=== PATIENT | female | born 1945 | race Caucasian/White ===

== ENCOUNTER 2017-01-14 10:09 | Outpatient (CLI) | payer BC ==
[~2017-01-14 10:09] MED LIST: ALPR0.255 PO; ASPI-605 PO; CALC-223 PO; LACT10SO PO; LOSA25TA3 PO; MAGN400T26 PO; METO25TA3 PO; ONDA4TAB11 PO; OXYC-164 PO; SENN-18 PO; SIMV10TA6 PO
== END 2017-01-14 23:59 | disposition home or self-care (01) ==
LOC: MRI 10:09
PROVIDERS: ATTEND Internal Medicine
DX: M24.10 Other articular cartilage disorders, unspecified site (principal)
CPT/HCPCS: 73718-TC

== ENCOUNTER 2017-02-11 11:02 | Outpatient (CLI) | payer BC ==
[2017-02-11 11:32] LABS: BASOPHILS % (AUTO) 0.7 % (0.0-2.0); EOSINOPHILS % (AUTO) 0.9 % (0.0-6.0); HEMATOCRIT 40 % (33-45); HEMOGLOBIN 13.3 g/dL (11.5-14.8); LYMPHOCYTES # (AUTO) 1.4 /CMM (0.8-4.8); LYMPHOCYTES % (AUTO) 28.6 % (20.0-44.0); MEAN CORPUSCULAR HEMOGLOBIN 30 PG (26.0-33.0); MEAN CORPUSCULAR HGB CONC 33 g/dl (31.0-36.0); MEAN CORPUSCULAR VOLUME 91 fL (82-100); MONOCYTES # (AUTO) 0.4 /CMM (0.1-1.30); NEUTROPHILS % (AUTO) 60.8 % (43.0-81.0); PLATELET COUNT (AUTO) 208 /CMM (150-450); RDW COEFFICIENT OF VARIATION 13.7 (11.5-15.0); RED BLOOD CELL COUNT(AUTO) 4.38 MIL/uL (4.0-5.2); WHITE BLOOD COUNT (AUTO) 4.9 K/uL (4.3-11.0)
[2017-02-11 11:51] LABS: ALBUMIN 3.9 g/dL (3.4-5.0); BILIRUBIN,TOTAL 1.2 mg/dL (0.2-1.0); CALCIUM, SERUM 8.6 mg/dL (8.5-10.1); CREATININE 0.7 mg/dL (0.6-1.3); POTASSIUM 3.7 mmol/L (3.5-5.1)
[2017-02-11 11:56] LABS: THYROID STIMULATING HORMONE 1.079 uIU/mL (0.358-3.74)
== END 2017-02-11 23:59 | disposition home or self-care (01) ==
LOC: LAB 11:02
PROVIDERS: ATTEND Internal Medicine Cardiovascular Disease
DX: I10 Essential (primary) hypertension (principal); E78.5 Hyperlipidemia, unspecified; R53.83 Other fatigue
CPT/HCPCS: 36415; 80053-TC; 80061-TC; 84443-TC; 85025-TC

== ENCOUNTER 2017-09-02 10:25 | Outpatient (CLI) | payer BC | END 2017-09-02 23:59 | disposition home or self-care (01) | LOC: LAB 10:25 | PROVIDERS: ATTEND Internal Medicine | DX: E55.9 Vitamin D deficiency, unspecified (principal); W27.3XXA Contact with needle (sewing), initial encounter; X58.XXXA Exposure to other specified factors, initial encounter; Y93.9 Activity, unspecified; Y92.9 Unspecified place or not applicable; Y99.9 Unspecified external cause status | CPT/HCPCS: 36415; 82306 ==

== ENCOUNTER 2018-03-31 09:10 | Outpatient (CLI) | payer BC ==
[~2018-03-31 09:10] MED LIST changes: -OXYC-164 PO; +OXYC-454 PO
[2018-03-31 09:41] LABS: BASOPHILS % (AUTO) 0.7 % (0.0-2.0); EOSINOPHILS % (AUTO) 2.1 % (0.0-6.0); HEMATOCRIT 41 % (33-45); HEMOGLOBIN 13.5 g/dL (11.5-14.8); LYMPHOCYTES # (AUTO) 1.6 /CMM (0.8-4.8); LYMPHOCYTES % (AUTO) 30.2 % (20.0-44.0); MEAN CORPUSCULAR HEMOGLOBIN 31 PG (26.0-33.0); MEAN CORPUSCULAR HGB CONC 33 g/dl (31.0-36.0); MEAN CORPUSCULAR VOLUME 92 fL (82-100); MONOCYTES # (AUTO) 0.5 /CMM (0.1-1.30); MONOCYTES % (AUTO) 9.5 % (2.0-12.0); NEUTROPHILS # (AUTO) 3.1 /CMM (1.8-8.9); NEUTROPHILS % (AUTO) 57.5 % (43.0-81.0); PLATELET COUNT (AUTO) 219 /CMM (150-450); RDW COEFFICIENT OF VARIATION 13.4 (11.5-15.0); RED BLOOD CELL COUNT(AUTO) 4.39 MIL/uL (4.0-5.2); WHITE BLOOD COUNT (AUTO) 5.3 K/uL (4.3-11.0)
[2018-03-31 10:00] LABS: CALCIUM, SERUM 8.6 mg/dL (8.5-10.1); CREATININE 0.8 mg/dL (0.6-1.3); POTASSIUM 4.4 mmol/L (3.5-5.1); TOTAL PROTEIN, SERUM 7.4 g/dL (6.4-8.2)
[2018-03-31 10:06] LABS: THYROID STIMULATING HORMONE 1.394 uIU/mL (0.358-3.74)
== END 2018-03-31 23:59 | disposition home or self-care (01) ==
LOC: LAB 09:10
PROVIDERS: ATTEND Internal Medicine Cardiovascular Disease
DX: I10 Essential (primary) hypertension (principal); E78.5 Hyperlipidemia, unspecified; R53.83 Other fatigue
CPT/HCPCS: 36415; 80053-TC; 80061-TC; 84443-TC; 85025-TC

== ENCOUNTER 2018-04-09 10:43 | Emergency (ER) | payer BC ==
[~2018-04-09] VITALS: Ht 165.1 cm; Wt 55.8 kg
--- NOTE | 2018-04-09 10:45 | NUR ---
AAOX3, CAME TO ER C/O ACUTE ONSET ALTERED MENTAL STATUS THIS AM, LKW 10AM. AT 1015, PATIENT STATES THAT SHE CAN'T RECOGNIZED ANY OF HER PATIENT. FACE SYMMETRICAL, BILATERAL STRONG AND EQUAL AEROBICS INSTRUCTOR. PLACED ON THE MONITOR. RR IS EVEN AND UNLABORED WITH NAD NOTED. DR MOSS AT BS FOR EVAL.
[2018-04-09 10:59] LABS: BASOPHILS % (AUTO) 0.7 % (0.0-2.0); EOSINOPHILS % (AUTO) 0.5 % (0.0-6.0); HEMATOCRIT 41 % (33-45); HEMOGLOBIN 13.6 g/dL (11.5-14.8); LYMPHOCYTES # (AUTO) 1.2 /CMM (0.8-4.8); LYMPHOCYTES % (AUTO) 18.6 % (20.0-44.0); MEAN CORPUSCULAR HEMOGLOBIN 30 PG (26.0-33.0); MEAN CORPUSCULAR HGB CONC 33 g/dl (31.0-36.0); MEAN CORPUSCULAR VOLUME 90 fL (82-100); MONOCYTES # (AUTO) 0.4 /CMM (0.1-1.30); MONOCYTES % (AUTO) 6.9 % (2.0-12.0); NEUTROPHILS # (AUTO) 4.7 /CMM (1.8-8.9); NEUTROPHILS % (AUTO) 73.3 % (43.0-81.0); PLATELET COUNT (AUTO) 245 /CMM (150-450); RDW COEFFICIENT OF VARIATION 12.4 (11.5-15.0); RED BLOOD CELL COUNT(AUTO) 4.55 MIL/uL (4.0-5.2); WHITE BLOOD COUNT (AUTO) 6.3 K/uL (4.3-11.0)
[2018-04-09] MEDS ORDERED: LABETALOL 20 MG/4 ML VIAL IV ONE (11:00)
[2018-04-09 11:08] LABS: CALCIUM, SERUM 8.6 mg/dL (8.5-10.1); CARBON DIOXIDE 28 mmol/L (21-32); CHLORIDE 103 mmol/L (98-107); CREATININE 0.7 mg/dL (0.6-1.3); GLUCOSE 131 mg/dL (74-106); POTASSIUM 3.7 mmol/L (3.5-5.1); SODIUM SERUM 137 mmol/L (136-145); UREA NITROGEN, BLOOD 17 mg/dL (7-18)
--- NOTE | 2018-04-09 11:11 | NUR ---
XRAY IN PROGRESS AT BS
[2018-04-09 11:12] LABS: INR 0.88 (0.85-1.15)
[2018-04-09 11:18] LABS: TROPONIN I < 0.017 ng/mL (0.00-0.056)
[2018-04-09 11:23] LABS: CHOLESTEROL 218 mg/dL (<200); HDL CHOLESTEROL 106 mg/dL (40-60); LDL 107 mg/dL (0-99); TRIGLYCERIDES 43 mg/dL (30-150)
[2018-04-09] MEDS ORDERED: IOHEXOL-350 100 ML VIAL IV ONE (11:39)
[2018-04-09] MEDS ORDERED: IV NS 0.9% 250 ML IV ONE (11:39)
[2018-04-09] MEDS ORDERED: CT SWABBABLE VALVE TRANS SET 1 EA INFUS.SET MC ONE (11:39)
--- NOTE | 2018-04-09 13:11 | NUR ---
CALLED AND PAGED DR. LUZ
[2018-04-09 13:44] VITALS: BP 134/70
--- NOTE | 2018-04-09 13:47 | NUR ---
Patient discharged to home in stable condition. Written and verbal after care instructions given. Patient verbalizes understanding of instruction. IV removed. Catheter intact and site benign. Pressure and 4x4 applied to site. No bleeding noted.
== END 2018-04-09 13:49 | disposition home or self-care (01) ==
LOC: ER 10:45
DX: G45.9 Transient cerebral ischemic attack, unspecified (principal); I10 Essential (primary) hypertension; Z91.040 Latex allergy status; Z91.013 Allergy to seafood; Z79.82 Long term (current) use of aspirin
CPT/HCPCS: 36415; 70450; 70496; 70498; 71045; 80048; 80061; 82962; 84484; 85025; 85730; 93005; 99285; A4606; J7050; Q9967; Z7610; J3490

== ENCOUNTER 2018-05-22 11:01 | Outpatient (CLI) | payer BC | END 2018-05-22 23:59 | disposition home or self-care (01) | LOC: US 11:01 | PROVIDERS: ATTEND Obstetrics & Gynecology | DX: N63.23 Unspecified lump in the left breast, lower outer quadrant (principal) | CPT/HCPCS: 76642-TC ==

== ENCOUNTER 2019-02-14 11:27 | Emergency (ER) | payer BC, MEDICARE, OTHER ==
[~2019-02-14] VITALS: Ht 165.1 cm; Wt 53.5 kg
[2019-02-14 11:40] VITALS: BP 145/83
--- NOTE | 2019-02-14 12:47 | NUR ---
Patient discharged to home in stable condition. Written and verbal after care instructions given. Patient verbalizes understanding of instruction. Ambulatory. Stable
== END 2019-02-14 12:49 | disposition home or self-care (01) ==
LOC: ER 11:29
DX: S61.230A Puncture wound without foreign body of right index finger without damage to nail, initial encounter (principal); I10 Essential (primary) hypertension; Z91.040 Latex allergy status; Z91.013 Allergy to seafood; Z79.82 Long term (current) use of aspirin; W46.0XXA Contact with hypodermic needle, initial encounter; Y93.89 Activity, other specified; Y92.89 Other specified places as the place of occurrence of the external cause; Y99.8 Other external cause status
CPT/HCPCS: 36415; 86706; 86803; 87340; 87806

== ENCOUNTER 2019-03-26 16:22 | Outpatient (CLI) | payer BC | END 2019-03-26 23:59 | disposition home or self-care (01) | DX: Z11.4 Encounter for screening for human immunodeficiency virus [HIV] (principal) ==

== ENCOUNTER 2019-04-06 14:44 | Outpatient (CLI) | payer BC ==
[2019-04-06 15:18] LABS: BASOPHILS % (AUTO) 0.7 % (0.0-2.0); EOSINOPHILS % (AUTO) 0.6 % (0.0-6.0); HEMATOCRIT 40 % (33-45); HEMOGLOBIN 13.5 g/dL (11.5-14.8); LYMPHOCYTES # (AUTO) 1.3 /CMM (0.8-4.8); LYMPHOCYTES % (AUTO) 20.7 % (20.0-44.0); MEAN CORPUSCULAR HGB CONC 34 g/dl (31.0-36.0); MEAN CORPUSCULAR VOLUME 92 fL (82-100); MONOCYTES # (AUTO) 0.5 /CMM (0.1-1.30); MONOCYTES % (AUTO) 7.6 % (2.0-12.0); NEUTROPHILS # (AUTO) 4.3 /CMM (1.8-8.9); NEUTROPHILS % (AUTO) 70.4 % (43.0-81.0); PLATELET COUNT (AUTO) 211 /CMM (150-450); RED BLOOD CELL COUNT(AUTO) 4.36 MIL/uL (4.0-5.2); WHITE BLOOD COUNT (AUTO) 6.1 K/uL (4.3-11.0)
== END 2019-04-06 23:59 | disposition home or self-care (01) ==
LOC: LAB 14:44
PROVIDERS: ATTEND Surgery
DX: Z01.812 Encounter for preprocedural laboratory examination (principal); D24.2 Benign neoplasm of left breast
CPT/HCPCS: 36415; 85025-TC; 85730-TC

== ENCOUNTER 2019-05-04 11:13 | Outpatient (CLI) | payer BC | END 2019-05-04 23:59 | disposition home or self-care (01) | LOC: LAB 11:13 | PROVIDERS: ATTEND Internal Medicine Cardiovascular Disease | DX: Z75.3 Unavailability and inaccessibility of health-care facilities (principal) ==

== ENCOUNTER 2019-05-08 09:45 | Outpatient (CLI) | payer BC ==
[2019-05-08 10:13] LABS: BASOPHILS % (AUTO) 0.8 % (0.0-2.0); EOSINOPHILS % (AUTO) 1.9 % (0.0-6.0); HEMATOCRIT 40 % (33-45); HEMOGLOBIN 13.7 g/dL (11.5-14.8); LYMPHOCYTES # (AUTO) 1.4 /CMM (0.8-4.8); LYMPHOCYTES % (AUTO) 31.5 % (20.0-44.0); MEAN CORPUSCULAR HGB CONC 34 g/dl (31.0-36.0); MEAN CORPUSCULAR VOLUME 92 fL (82-100); MONOCYTES # (AUTO) 0.4 /CMM (0.1-1.30); MONOCYTES % (AUTO) 10.2 % (2.0-12.0); NEUTROPHILS # (AUTO) 2.4 /CMM (1.8-8.9); NEUTROPHILS % (AUTO) 55.6 % (43.0-81.0); PLATELET COUNT (AUTO) 210 /CMM (150-450); RED BLOOD CELL COUNT(AUTO) 4.39 MIL/uL (4.0-5.2); WHITE BLOOD COUNT (AUTO) 4.4 K/uL (4.3-11.0)
[2019-05-08 10:29] LABS: ALBUMIN 3.8 g/dL (3.4-5.0); BILIRUBIN,TOTAL 1.2 mg/dL (0.2-1.0); CALCIUM, SERUM 8.5 mg/dL (8.5-10.1); CREATININE 0.9 mg/dL (0.6-1.3)
[2019-05-08 10:36] LABS: THYROID STIMULATING HORMONE 1.967 uIU/mL (0.358-3.74)
== END 2019-05-08 23:59 | disposition home or self-care (01) ==
LOC: LAB 09:45
PROVIDERS: ATTEND Internal Medicine Cardiovascular Disease
DX: E11.9 Type 2 diabetes mellitus without complications (principal); E78.5 Hyperlipidemia, unspecified; I10 Essential (primary) hypertension; R53.83 Other fatigue
CPT/HCPCS: 36415; 80053-TC; 80061-TC; 84443-TC; 85025-TC

== ENCOUNTER 2019-06-02 19:52 | Emergency (ER) | payer BC, OTHER ==
[~2019-06-02] VITALS: Ht 162.6 cm; Wt 53.5 kg
[2019-06-02 19:54] VITALS: BP 131/67
== END 2019-06-02 20:20 | disposition home or self-care (01) ==
LOC: ER 20:00
DX: S16.1XXA Strain of muscle, fascia and tendon at neck level, initial encounter (principal); I10 Essential (primary) hypertension; Z91.040 Latex allergy status; Z91.013 Allergy to seafood; Z79.899 Other long term (current) drug therapy; Z79.82 Long term (current) use of aspirin; W22.8XXA Striking against or struck by other objects, initial encounter; Y93.89 Activity, other specified; Y92.89 Other specified places as the place of occurrence of the external cause; Y99.8 Other external cause status

== ENCOUNTER 2019-11-05 15:35 | Outpatient (CLI) | payer BC ==
[~2019-11-05 15:35] MED LIST changes: -SIMV10TA6 PO; +SIMV10TA98 PO
[2019-11-05 16:08] LABS: APPEARANCE,URINE CLEAR (CLEAR); BASOPHILS # (AUTO) 0.1 /CMM (0.0-0.2); BASOPHILS % (AUTO) 0.8 % (0.0-2.0); BILIRUBIN,URINE NEGATIVE (NEGATIVE); BLOOD, URINE NEGATIVE Ery/uL (NEGATIVE); COLOR,URINE YELLOW (YELLOW); EOSINOPHILS % (AUTO) 1.2 % (0.0-6.0); HEMATOCRIT 39 % (33-45); HEMOGLOBIN 13.1 g/dL (11.5-14.8); KETONES,URINE NEGATIVE (NEGATIVE); LEUKOCYTE ESTERASE ,URINE MODERATE (NEGATIVE); LYMPHOCYTES # (AUTO) 1.5 /CMM (0.8-4.8); LYMPHOCYTES % (AUTO) 22.1 % (20.0-44.0); MEAN CORPUSCULAR HGB CONC 33 g/dl (31.0-36.0); MEAN CORPUSCULAR VOLUME 91 fL (82-100); MONOCYTES # (AUTO) 0.6 /CMM (0.1-1.30); MONOCYTES % (AUTO) 9.1 % (2.0-12.0); NEUTROPHILS # (AUTO) 4.5 /CMM (1.8-8.9); NEUTROPHILS % (AUTO) 66.8 % (43.0-81.0); NITRITE, URINE NEGATIVE (NEGATIVE); PH,URINE 6.5 (5.0-8.0); PLATELET COUNT (AUTO) 237 /CMM (150-450); PROTEIN,URINE NEGATIVE (NEGATIVE); UGLUCOSE NEGATIVE (NEGATIVE); UROBILINOGEN,URINE 0.2 EU/dL (0.2); WHITE BLOOD COUNT (AUTO) 6.7 K/uL (4.3-11.0)
[2019-11-05 16:23] LABS: ALANINE AMINOTRANSFERASE 12 U/L (12-78); ALBUMIN 3.9 g/dL (3.4-5.0); ALKALINE PHOSPHATASE 75 U/L (46-116); ASPARTATE AMINOTRANSFERASE 18 U/L (15-37); BILIRUBIN,TOTAL 1.2 mg/dL (0.2-1.0); CALCIUM, SERUM 8.4 mg/dL (8.5-10.1); CARBON DIOXIDE 28 mmol/L (21-32); CHLORIDE 101 mmol/L (98-107); CREATININE 0.8 mg/dL (0.6-1.3); GLUCOSE 87 mg/dL (74-106); MAGNESIUM 1.9 mg/dL (1.8-2.4); POTASSIUM 4.2 mmol/L (3.5-5.1); SODIUM SERUM 137 mmol/L (136-145); TOTAL PROTEIN, SERUM 6.9 g/dL (6.4-8.2); UREA NITROGEN, BLOOD 20 mg/dL (7-18)
[2019-11-05 16:45] LABS: FREE T4 (FREE THYROXINE) 1.17 ng/dL (0.76-1.46); THYROID STIMULATING HORMONE 1.157 uIU/mL (0.358-3.74)
[2019-11-05 17:07] LABS: C-REACTIVE PROTEIN < 0.2 mg/dL (0.0-0.9)
== END 2019-11-05 23:59 | disposition home or self-care (01) ==
LOC: LAB 15:35
DX: I10 Essential (primary) hypertension (principal)
CPT/HCPCS: 36415; 80053-TC; 81000-TC; 82306; 83735-TC; 84439-TC; 84443-TC; 85025-TC; 86140-TC

== ENCOUNTER 2019-11-28 20:35 | Emergency (ER) | payer BC, OTHER ==
[~2019-11-28] VITALS: Ht 154.9 cm; Wt 49.0 kg
[2019-11-28 20:37] VITALS: BP 150/84
--- NOTE | 2019-11-28 21:00 | NUR ---
SEEN AND EXAMINED BY .
--- NOTE | 2019-11-28 21:05 | NUR ---
AGUILAR TEST OBTAINED AND SENT TO LAB.
--- NOTE | 2019-11-28 21:13 | NUR ---
Patient discharged to home in stable condition. Written and verbal after care instructions given. Patient verbalizes understanding of instruction.
== END 2019-11-28 21:15 | disposition home or self-care (01) ==
LOC: ER 20:38
DX: R05 Cough (principal); R06.02 Shortness of breath; I10 Essential (primary) hypertension
CPT/HCPCS: 36415

== ENCOUNTER 2020-02-08 10:47 | Outpatient (CLI) | payer BC ==
[2020-02-08 11:50] LABS: EOSINOPHILS % (AUTO) 1.3 % (0.0-6.0); HEMATOCRIT 39 % (33-45); HEMOGLOBIN 12.8 g/dL (11.5-14.8); LYMPHOCYTES # (AUTO) 1.2 /CMM (0.8-4.8); LYMPHOCYTES % (AUTO) 28.5 % (20.0-44.0); MEAN CORPUSCULAR HGB CONC 33 g/dl (31.0-36.0); MEAN CORPUSCULAR VOLUME 92 fL (82-100); MONOCYTES # (AUTO) 0.4 /CMM (0.1-1.30); MONOCYTES % (AUTO) 10.1 % (2.0-12.0); NEUTROPHILS # (AUTO) 2.5 /CMM (1.8-8.9); NEUTROPHILS % (AUTO) 59.1 % (43.0-81.0); PLATELET COUNT (AUTO) 210 /CMM (150-450); RED BLOOD CELL COUNT(AUTO) 4.25 MIL/uL (4.0-5.2); WHITE BLOOD COUNT (AUTO) 4.2 K/uL (4.3-11.0)
[2020-02-08 12:05] LABS: ALBUMIN 3.7 g/dL (3.4-5.0); BILIRUBIN,TOTAL 0.7 mg/dL (0.2-1.0); CALCIUM, SERUM 8.7 mg/dL (8.5-10.1); CREATININE 0.8 mg/dL (0.6-1.3); POTASSIUM 4.2 mmol/L (3.5-5.1); TOTAL PROTEIN, SERUM 6.8 g/dL (6.4-8.2)
[2020-02-08 12:14] LABS: THYROID STIMULATING HORMONE 1.36 uIU/mL (0.358-3.74)
== END 2020-02-08 23:59 | disposition home or self-care (01) ==
LOC: LAB 10:47
PROVIDERS: ATTEND Internal Medicine Interventional Cardiology
DX: I10 Essential (primary) hypertension (principal); E78.5 Hyperlipidemia, unspecified
CPT/HCPCS: 36415; 80053-TC; 80061-TC; 84443-TC; 85025-TC; 86317; 86803; 87806

== ENCOUNTER 2020-06-06 15:56 | Outpatient (CLI) | payer BC ==
[~2020-06-06 15:56] MED LIST changes: -OXYC-454 PO; +OXYC1TAB12 PO
== END 2020-06-06 23:59 | disposition home or self-care (01) ==
LOC: LAB 15:56
PROVIDERS: ATTEND Internal Medicine Interventional Cardiology
DX: Z20.2 Contact with and (suspected) exposure to infections with a predominantly sexual mode of transmission (principal)
CPT/HCPCS: 36415; 80074; 87806

== ENCOUNTER 2020-10-07 14:51 | Outpatient (CLI) | payer BC ==
[~2020-10-07 14:51] MED LIST changes: -LACT10SO PO; +LACT10SO3 PO
[2020-10-07 16:20] LABS: BILIRUBIN,URINE NEGATIVE (NEGATIVE); COLOR,URINE YELLOW (YELLOW); LEUKOCYTE ESTERASE ,URINE NEGATIVE (NEGATIVE); NITRITE, URINE NEGATIVE (NEGATIVE); PROTEIN,URINE NEGATIVE (NEGATIVE); UGLUCOSE NEGATIVE (NEGATIVE); UROBILINOGEN,URINE 0.2 EU/dL (0.2)
== END 2020-10-07 23:59 | disposition home or self-care (01) ==
LOC: LAB 14:51
DX: S61.239A Puncture wound without foreign body of unspecified finger without damage to nail, initial encounter (principal); X58.XXXA Exposure to other specified factors, initial encounter; Y93.89 Activity, other specified; Y92.89 Other specified places as the place of occurrence of the external cause; Y99.8 Other external cause status
CPT/HCPCS: 36415; 86317; 86709-TC; 86803; 87086-TC; 87340; 87806

== ENCOUNTER 2021-04-20 15:13 | Outpatient (CLI) | payer BC ==
[2021-04-20 15:46] LABS: BASOPHILS # (AUTO) 0.1 K/uL (0.0-0.2); BASOPHILS % (AUTO) 0.9 % (0.0-2.0); EOSINOPHILS % (AUTO) 0.8 % (0.0-6.0); HEMATOCRIT 40 % (33-45); HEMOGLOBIN 13.6 g/dL (11.5-14.8); LYMPHOCYTES # (AUTO) 1.5 K/uL (0.8-4.8); LYMPHOCYTES % (AUTO) 26.4 % (20.0-44.0); MEAN CORPUSCULAR HGB CONC 34 g/dl (31.0-36.0); MEAN CORPUSCULAR VOLUME 92 fL (82-100); MONOCYTES # (AUTO) 0.5 K/uL (0.1-1.30); MONOCYTES % (AUTO) 8.9 % (2.0-12.0); NEUTROPHILS # (AUTO) 3.6 K/uL (1.8-8.9); PLATELET COUNT (AUTO) 218 K/uL (150-450); WHITE BLOOD COUNT (AUTO) 5.8 K/uL (4.3-11.0)
[2021-04-20 15:59] LABS: BILIRUBIN,URINE NEGATIVE (NEGATIVE); COLOR,URINE YELLOW (YELLOW); LEUKOCYTE ESTERASE ,URINE NEGATIVE (NEGATIVE); NITRITE, URINE NEGATIVE (NEGATIVE); PROTEIN,URINE NEGATIVE (NEGATIVE); UGLUCOSE NEGATIVE (NEGATIVE); UROBILINOGEN,URINE 0.2 EU/dL (0.2)
== END 2021-04-20 23:59 | disposition home or self-care (01) ==
LOC: LAB 15:13
PROVIDERS: ATTEND Internal Medicine
DX: N39.0 Urinary tract infection, site not specified (principal); R53.82 Chronic fatigue, unspecified
CPT/HCPCS: 36415; 85025-TC

== ENCOUNTER 2021-07-29 07:02 | Emergency (ER) | payer OTHER, BC ==
[~2021-07-29] VITALS: Ht 165.1 cm; Wt 51.3 kg
--- NOTE | 2021-07-29 07:02 | NUR ---
BIBS FROM [facility] C/O OF L KNEE PAIN FROM A FALL; PT DENIES HEAD TRAUMA. VITALS ARE WITHIN NORMAL LIMITS. BREATHING IS REGULAR AND UNLABORED.
--- NOTE | 2021-07-29 07:17 | NUR ---
DR SIMON AT BEDSIDE
[2021-07-29] MEDS ORDERED: IBUPROFEN 400 MG TABLET PO ONE (08:00)
[2021-07-29] MEDS ORDERED: IBUPROFEN 400 MG TABLET ONE (08:01)
--- NOTE | 2021-07-29 08:51 | NUR ---
ASSISTED PT TO RESTROOM. PT IS UNABLE TO BARE WEIGHT ON L LEG.
--- NOTE | 2021-07-29 10:48 | NUR ---
CALLED [facility], SPEAKING WITH DR. SIMON
[2021-07-29] MEDS ORDERED: IBUP-1955 PO (11:06)
--- NOTE | 2021-07-29 11:14 | NUR ---
KNEE IMMOBILIZER PLACED ON L KNEE.
--- NOTE | 2021-07-29 12:33 | NUR ---
ASSISTED PT TO THE RESTROOM USING A WALKER.
[2021-07-29] MEDS ORDERED: HYDR-4303 PO (13:43)
--- NOTE | 2021-07-29 14:03 | NUR ---
PT VERBALIZES UNDERSTAND RX SENT TO PHARMACY
--- NOTE | 2021-07-29 14:04 | NUR ---
Patient discharged to home in stable condition. Written and verbal after care instructions given. Patient verbalizes understanding of instruction. PT DC VIA W/C
[2021-07-29 14:05] VITALS: BP 127/84
== END 2021-07-29 14:05 | disposition home or self-care (01) ==
LOC: ER 07:09
DX: S82.142A Displaced bicondylar fracture of left tibia, initial encounter for closed fracture (principal); S82.092A Other fracture of left patella, initial encounter for closed fracture; I10 Essential (primary) hypertension; E78.5 Hyperlipidemia, unspecified; Z91.040 Latex allergy status; Z91.013 Allergy to seafood; Z79.899 Other long term (current) drug therapy; Z79.82 Long term (current) use of aspirin; W01.0XXA Fall on same level from slipping, tripping and stumbling without subsequent striking against object, initial encounter; Y93.89 Activity, other specified; Y92.89 Other specified places as the place of occurrence of the external cause; Y99.8 Other external cause status
CPT/HCPCS: 73564-TC; 73700-TC

== ENCOUNTER 2022-03-13 17:56 | Emergency (ER) | payer OTHER ==
[~2022-03-13] VITALS: Ht 165.1 cm; Wt 51.7 kg
[~2022-03-13 17:56] MED LIST changes: +HYDR-4303 PO; +IBUP-1955 PO
--- NOTE | 2022-03-13 17:59 | NUR ---
[facility] STAFF FROM . PT IS AN EMPLOYEE AND SLIPPED/FELL WHILE IN THE UTILITY ROOM AND INJURED HER R KNEE. DR MOSS AT BEDSIDE
--- NOTE | 2022-03-13 18:00 | NUR ---
BIB STAFF FROM [facility] VIA WHEELCHAIR. PER PT, SHE TRIPPED AND FELL ON THE FLOOR SHE WAS MAKING HER WAY TO THE MEDICATION ROOM; SHE STATES THAT SHE MUST HAVE BRACED HER FALL W/ HER RIGHT FOREARM AND CURRENTLY HAS PAIN ON THE SAID AREA, HER RIGHT KNEE, AND HER FACE. TO ER BED 1.
--- NOTE | 2022-03-13 18:07 | NUR ---
DR MOSS AT BEDSIDE FOR EVAL
[2022-03-13] MEDS ORDERED: MORPHINE SULFATE INJ 2 MG/ML DISP.SYRIN IM ONE ×2 (18:30→19:30)
--- NOTE | 2022-03-13 18:52 | NUR ---
CONFIRMED MORPHINE ORDER W/ DR. MOSS.
--- NOTE | 2022-03-13 18:53 | NUR ---
PT TAKEN TO RADIOLOGY VIA [facility].
--- NOTE | 2022-03-13 18:55 | NUR ---
PER PHARMACY, OKAY TO GET TWO (2) 4MG/ML MORPHINE AND ONE (1) 2MG/ML MORPHINE TO COMPLETE THE 10-MG IM DOSE.
[2022-03-13] MEDS ORDERED: MORPHINE SULFATE INJ 4 MG/ML DISP.SYRIN ONE (18:58)
[2022-03-13] MEDS ORDERED: MORPHINE SULFATE INJ 2 MG/ML DISP.SYRIN ONE (18:58)
--- NOTE | 2022-03-13 19:16 | NUR ---
PT RETURNED FROM RADIOLOGY
--- NOTE | 2022-03-13 19:33 | NUR ---
DR MOSS CHANGED ORDER TO 2MG MORPHINE IM, ORDER VERIFIED W/ MD AND CARRIED OUT.
[2022-03-13] MEDS ORDERED: IBUP-1955 PO (19:45)
[2022-03-13] MEDS ORDERED: LACT10SO3 PO (19:45)
[2022-03-13] MEDS ORDERED: HYDR-3972 PO (19:45)
--- NOTE | 2022-03-13 20:04 | NUR ---
Patient discharged to home in stable condition. RX Written and verbal after care instructions given. Patient verbalizes understanding of instruction. Splint applied to pt's r wrist
[2022-03-13 20:14] VITALS: BP 132/94
== END 2022-03-13 20:04 | disposition home or self-care (01) ==
LOC: ER 18:00
DX: S52.531A Colles' fracture of right radius, initial encounter for closed fracture (principal); S83.8X1A Sprain of other specified parts of right knee, initial encounter; S00.83XA Contusion of other part of head, initial encounter; S00.511A Abrasion of lip, initial encounter; I10 Essential (primary) hypertension; E78.5 Hyperlipidemia, unspecified; M85.80 Other specified disorders of bone density and structure, unspecified site; Z91.040 Latex allergy status; Z91.013 Allergy to seafood; Z79.899 Other long term (current) drug therapy; Z79.82 Long term (current) use of aspirin; W01.0XXA Fall on same level from slipping, tripping and stumbling without subsequent striking against object, initial encounter; Y93.01 Activity, walking, marching and hiking; Y92.89 Other specified places as the place of occurrence of the external cause; Y99.0 Civilian activity done for income or pay
CPT/HCPCS: 99284; 70486; 29125; 73090; 73564; 96372; J2270

== ENCOUNTER 2022-06-04 11:44 | Outpatient (CLI) | payer BC, OTHER ==
[~2022-06-04 11:44] MED LIST changes: +HYDR-3972 PO
[2022-06-04 12:23] LABS: BASOPHILS # (AUTO) 0.1 K/uL (0.0-0.2); BASOPHILS % (AUTO) 0.9 % (0.0-2.0); EOSINOPHILS % (AUTO) 1.1 % (0.0-6.0); HEMATOCRIT 39 % (33-45); HEMOGLOBIN 13.2 g/dL (11.5-14.8); LYMPHOCYTES # (AUTO) 1.3 K/uL (0.8-4.8); LYMPHOCYTES % (AUTO) 23.2 % (20.0-44.0); MEAN CORPUSCULAR HGB CONC 34 g/dl (31.0-36.0); MEAN CORPUSCULAR VOLUME 90 fL (82-100); MONOCYTES # (AUTO) 0.5 K/uL (0.1-1.30); MONOCYTES % (AUTO) 9.1 % (2.0-12.0); NEUTROPHILS # (AUTO) 3.8 K/uL (1.8-8.9); NEUTROPHILS % (AUTO) 65.7 % (43.0-81.0); PLATELET COUNT (AUTO) 227 K/uL (150-450); RED BLOOD CELL COUNT(AUTO) 4.34 MIL/uL (4.0-5.2); WHITE BLOOD COUNT (AUTO) 5.7 K/uL (4.3-11.0)
[2022-06-04 12:38] LABS: ALANINE AMINOTRANSFERASE 14 U/L (12-78); ALBUMIN 4.3 g/dL (3.4-5.0); ALKALINE PHOSPHATASE 62 U/L (46-116); ASPARTATE AMINOTRANSFERASE 15 U/L (15-37); BILIRUBIN,TOTAL 1.4 mg/dL (0.2-1.0); CALCIUM, SERUM 8.7 mg/dL (8.5-10.1); CARBON DIOXIDE 32 mmol/L (21-32); CHLORIDE 103 mmol/L (98-107); CREATININE 0.9 mg/dL (0.6-1.3); GLUCOSE 96 mg/dL (74-106); POTASSIUM 3.8 mmol/L (3.5-5.1); SODIUM SERUM 139 mmol/L (136-145); TOTAL PROTEIN, SERUM 7.4 g/dL (6.4-8.2); UREA NITROGEN, BLOOD 27 mg/dL (7-18)
[2022-06-04 12:47] LABS: CHOLESTEROL 233 mg/dL (<200); HDL CHOLESTEROL 108 mg/dL (40-60); LDL 115 mg/dL (0-99); THYROID STIMULATING HORMONE 1.161 uIU/mL (0.358-3.74); TRIGLYCERIDES 44 mg/dL (30-150)
== END 2022-06-04 23:59 | disposition home or self-care (01) ==
LOC: LAB 11:44
PROVIDERS: ATTEND Internal Medicine Interventional Cardiology
DX: I10 Essential (primary) hypertension (principal); E78.5 Hyperlipidemia, unspecified; E11.9 Type 2 diabetes mellitus without complications; E03.9 Hypothyroidism, unspecified; R53.83 Other fatigue
CPT/HCPCS: 36415; 80053-TC; 80061-TC; 84443-TC; 85025-TC

== ENCOUNTER 2022-09-17 12:15 | Outpatient (CLI) | payer BC, OTHER ==
[2022-09-17 13:03] LABS: BILIRUBIN,URINE NEGATIVE (NEGATIVE); COLOR,URINE YELLOW (YELLOW); LEUKOCYTE ESTERASE ,URINE NEGATIVE (NEGATIVE); NITRITE, URINE NEGATIVE (NEGATIVE); PROTEIN,URINE NEGATIVE (NEGATIVE); UGLUCOSE NEGATIVE (NEGATIVE); UROBILINOGEN,URINE 0.2 EU/dL (0.2)
[2022-09-17 13:04] LABS: BASOPHILS % (AUTO) 0.4 % (0.0-2.0); EOSINOPHILS % (AUTO) 1.6 % (0.0-6.0); HEMATOCRIT 40 % (33-45); HEMOGLOBIN 13.2 g/dL (11.5-14.8); LYMPHOCYTES % (AUTO) 15.4 % (20.0-44.0); MEAN CORPUSCULAR HGB CONC 33 g/dl (31.0-36.0); MEAN CORPUSCULAR VOLUME 92 fL (82-100); MONOCYTES # (AUTO) 0.7 K/uL (0.1-1.30); MONOCYTES % (AUTO) 10.3 % (2.0-12.0); NEUTROPHILS # (AUTO) 4.6 K/uL (1.8-8.9); NEUTROPHILS % (AUTO) 72.3 % (43.0-81.0); PLATELET COUNT (AUTO) 263 K/uL (150-450); RED BLOOD CELL COUNT(AUTO) 4.38 MIL/uL (4.0-5.2); WHITE BLOOD COUNT (AUTO) 6.3 K/uL (4.3-11.0)
[2022-09-17 13:16] LABS: BACTERIA,URINE None seen /HPF (None Seen); MUCUS,URINE Few /LPF (None Seen); RBC,URINE 0-2 /HPF (0-2); SQUAMOUS EPITHELIAL CELL,UR Few /HPF (None Seen); WBC,URINE 0-2 /HPF (0-3)
[2022-09-17 13:34] LABS: FREE T4 (FREE THYROXINE) 1.11 ng/dL (0.76-1.46); THYROID STIMULATING HORMONE 1.056 uIU/mL (0.358-3.74)
[2022-09-17 13:50] LABS: ALBUMIN 3.8 g/dL (3.4-5.0); BILIRUBIN,TOTAL 1.4 mg/dL (0.2-1.0); CALCIUM, SERUM 8.8 mg/dL (8.5-10.1); CREATININE 0.9 mg/dL (0.6-1.3); MAGNESIUM 2.1 mg/dL (1.8-2.4); POTASSIUM 4.2 mmol/L (3.5-5.1); TOTAL PROTEIN, SERUM 7.2 g/dL (6.4-8.2)
== END 2022-09-17 23:59 | disposition home or self-care (01) ==
LOC: LAB 12:15
PROVIDERS: ATTEND Internal Medicine
DX: Z00.00 Encounter for general adult medical examination without abnormal findings (principal); R79.89 Other specified abnormal findings of blood chemistry; Z79.899 Other long term (current) drug therapy; E55.9 Vitamin D deficiency, unspecified
CPT/HCPCS: 36415; 80053-TC; 80061-TC; 81001; 82306; 82607-TC; 82728-TC; 83540-TC; 83735-TC; 84439-TC; 84443-TC; 84481; 85025-TC; 85652-TC

== ENCOUNTER 2022-12-28 12:57 | Outpatient (CLI) | payer BC, OTHER | END 2022-12-28 23:59 | disposition home or self-care (01) | LOC: MRI 12:57 | PROVIDERS: ATTEND Internal Medicine | DX: M19.012 Primary osteoarthritis, left shoulder (principal); M25.512 Pain in left shoulder; M65.812 Other synovitis and tenosynovitis, left shoulder | CPT/HCPCS: 73221-TC ==

== ENCOUNTER 2023-04-01 06:51 | Day surgery (SDC) | payer BC, OTHER ==
[2023-04-01 07:17] LABS: BASOPHILS # (AUTO) 0.1 K/uL (0.0-0.2); BASOPHILS % (AUTO) 0.9 % (0.0-2.0); EOSINOPHILS # (AUTO) 0.1 K/uL (0.0-0.7); EOSINOPHILS % (AUTO) 1.1 % (0.0-6.0); HEMATOCRIT 42 % (33-45); HEMOGLOBIN 13.9 g/dL (11.5-14.8); LYMPHOCYTES # (AUTO) 1.9 K/uL (0.8-4.8); LYMPHOCYTES % (AUTO) 31.4 % (20.0-44.0); MEAN CORPUSCULAR HEMOGLOBIN 31 PG (26.0-33.0); MEAN CORPUSCULAR HGB CONC 33 g/dl (31.0-36.0); MEAN CORPUSCULAR VOLUME 93 fL (82-100); MONOCYTES # (AUTO) 0.7 K/uL (0.1-1.30); MONOCYTES % (AUTO) 10.8 % (2.0-12.0); NEUTROPHILS # (AUTO) 3.4 K/uL (1.8-8.9); NEUTROPHILS % (AUTO) 55.8 % (43.0-81.0); PLATELET COUNT (AUTO) 254 K/uL (150-450); RED BLOOD CELL COUNT(AUTO) 4.56 MIL/uL (4.0-5.2); RED CELL DISTRIBUTION WIDTH 13.9 % (11.5-15.0); WHITE BLOOD COUNT (AUTO) 6.1 K/uL (4.3-11.0)
[2023-04-01 07:32] LABS: CALCIUM, SERUM 9.2 mg/dL (8.5-10.1); CREATININE 0.9 mg/dL (0.6-1.3); POTASSIUM 4.1 mmol/L (3.5-5.1)
[2023-04-01 07:39] LABS: ALBUMIN 4.3 g/dL (3.4-5.0); BILIRUBIN,TOTAL 1.4 mg/dL (0.2-1.0); TOTAL PROTEIN, SERUM 7.9 g/dL (6.4-8.2)
== END 2023-04-01 10:30 | disposition home or self-care (01) ==
LOC: DS 06:51
PROVIDERS: ATTEND Internal Medicine Gastroenterology
DX: Z12.11 Encounter for screening for malignant neoplasm of colon (principal); K29.70 Gastritis, unspecified, without bleeding; K22.2 Esophageal obstruction; Z80.0 Family history of malignant neoplasm of digestive organs; K64.8 Other hemorrhoids; K57.30 Diverticulosis of large intestine without perforation or abscess without bleeding; Z88.1 Allergy status to other antibiotic agents; I10 Essential (primary) hypertension; Z98.890 Other specified postprocedural states; Z79.899 Other long term (current) drug therapy
CPT/HCPCS: 36415; 43239; 45378; 71045; 80053; 85025; 88305; 88313; 88342; 93005; J2704; J7030

== ENCOUNTER 2023-09-21 19:28 | Emergency (ER) | payer BC, OTHER ==
[~2023-09-21] VITALS: Ht 165.1 cm; Wt 51.3 kg
[2023-09-21 20:36] LABS: BASOPHILS # (AUTO) 0.1 K/uL (0.0-0.2); BASOPHILS % (AUTO) 1.3 % (0.0-2.0); EOSINOPHILS # (AUTO) 0.1 K/uL (0.0-0.7); EOSINOPHILS % (AUTO) 1.8 % (0.0-6.0); HEMATOCRIT 37 % (33-45); HEMOGLOBIN 12.6 g/dL (11.5-14.8); LYMPHOCYTES # (AUTO) 1.7 K/uL (0.8-4.8); LYMPHOCYTES % (AUTO) 23.4 % (20.0-44.0); MEAN CORPUSCULAR HEMOGLOBIN 31 PG (26.0-33.0); MEAN CORPUSCULAR HGB CONC 34 g/dl (31.0-36.0); MEAN CORPUSCULAR VOLUME 92 fL (82-100); MONOCYTES # (AUTO) 0.7 K/uL (0.1-1.30); MONOCYTES % (AUTO) 10.4 % (2.0-12.0); NEUTROPHILS # (AUTO) 4.5 K/uL (1.8-8.9); NEUTROPHILS % (AUTO) 63.1 % (43.0-81.0); PLATELET COUNT (AUTO) 224 K/uL (150-450); RED BLOOD CELL COUNT(AUTO) 4.06 MIL/uL (4.0-5.2); RED CELL DISTRIBUTION WIDTH 13.7 % (11.5-15.0); WHITE BLOOD COUNT (AUTO) 7.2 K/uL (4.3-11.0)
[2023-09-21 20:50] LABS: CALCIUM, SERUM 8.7 mg/dL (8.5-10.1); CARBON DIOXIDE 30 mmol/L (21-32); CHLORIDE 99 mmol/L (98-107); CREATININE 0.9 mg/dL (0.6-1.3); GLUCOSE 81 mg/dL (74-106); POTASSIUM 3.9 mmol/L (3.5-5.1); SODIUM SERUM 136 mmol/L (136-145); UREA NITROGEN, BLOOD 22 mg/dL (7-18)
[2023-09-21 23:41] VITALS: BP 132/88; TEMP 98; O2SAT 98
== END 2023-09-21 23:42 | disposition home or self-care (01) ==
LOC: ER 19:33
DX: Z00.00 Encounter for general adult medical examination without abnormal findings (principal); I10 Essential (primary) hypertension; E78.5 Hyperlipidemia, unspecified; Z91.013 Allergy to seafood; Z88.2 Allergy status to sulfonamides; Z88.8 Allergy status to other drugs, medicaments and biological substances; Z79.899 Other long term (current) drug therapy
CPT/HCPCS: 36415; 71045-TC; 80048-TC; 84484-TC; 85025-TC

== ENCOUNTER 2024-01-17 16:02 | Inpatient (IN) | payer BC, OTHER ==
[~2024-01-17] VITALS: Ht 162.6 cm; Wt 54.4 kg
[2024-01-17 16:48] LABS: EOSINOPHILS # (AUTO) 0.1 K/uL (0.0-0.7); EOSINOPHILS % (AUTO) 1.6 % (0.0-6.0); HEMOGLOBIN 13.3 g/dL (11.5-14.8); MEAN CORPUSCULAR HEMOGLOBIN 30 PG (26.0-33.0); MONOCYTES # (AUTO) 0.7 K/uL (0.1-1.30); MONOCYTES % (AUTO) 12.4 % (2.0-12.0)
[2024-01-17] MEDS ORDERED: CT SWABBABLE VALVE TRANS SET 1 EA INFUS.SET MC ONE (16:49)
[2024-01-17] MEDS ORDERED: IOHEXOL-350 100 ML VIAL IV ONE (16:49)
[2024-01-17] MEDS ORDERED: IV NS 0.9% 250 ML IV ONE (16:50)
[2024-01-17 16:54] LABS: BASOPHILS # (AUTO) 0.1 K/uL (0.0-0.2); HEMATOCRIT 40 % (33-45); LYMPHOCYTES # (AUTO) 1.7 K/uL (0.8-4.8); LYMPHOCYTES % (AUTO) 27.9 % (20.0-44.0); MEAN CORPUSCULAR HGB CONC 33 g/dl (31.0-36.0); MEAN CORPUSCULAR VOLUME 90 fL (82-100); NEUTROPHILS # (AUTO) 3.4 K/uL (1.8-8.9); NEUTROPHILS % (AUTO) 57.1 % (43.0-81.0); PLATELET COUNT (AUTO) 222 K/uL (150-450); RED BLOOD CELL COUNT(AUTO) 4.43 MIL/uL (4.0-5.2); RED CELL DISTRIBUTION WIDTH 13.8 % (11.5-15.0)
[2024-01-17 16:56] LABS: CALCIUM, SERUM 8.4 mg/dL (8.5-10.1); CARBON DIOXIDE 31 mmol/L (21-32); CHLORIDE 99 mmol/L (98-107); CREATININE 0.9 mg/dL (0.6-1.3); GLUCOSE 113 mg/dL (74-106); SODIUM SERUM 135 mmol/L (136-145); UREA NITROGEN, BLOOD 18 mg/dL (7-18)
[2024-01-17 17:00] LABS: INR 0.96 (0.91-1.10); PARTIAL THROMBOPLASTIN TIME 26.3 SEC (24.3-34.3); PROTHROMBIN TIME 9.9 SECS (9.2-11.1)
[2024-01-17] MEDS ORDERED: ASPI-1169 PO (17:54)
[2024-01-17] MEDS ORDERED: CITA20TA19 PO (17:54)
[2024-01-17] MEDS ORDERED: IBUP-23 PO (17:54)
[2024-01-17] MEDS ORDERED: diphenhydrAMINE HCL 50 MG/ML VIAL ONE (17:57)
[2024-01-17] MEDS ORDERED: ASPIRIN 81 MG TAB.CHEW ONE (17:57)
[2024-01-17] MEDS: diphenhydrAMINE HCL 50 MG/ML VIAL IV ONE (18:16)
[2024-01-17] MEDS: ASPIRIN 81 MG TAB.CHEW PO ONE (18:16)
[2024-01-17 18:33] VITALS: O2SAT 99
[2024-01-17 20:00] VITALS: BP 106/62; TEMP 97.7; O2SAT 96
[2024-01-17 20:30] VITALS: BP 106/62; TEMP 97.7; O2SAT 96
[2024-01-17 21:15] LABS: BASOPHILS % (AUTO) 0.9 % (0.0-2.0); EOSINOPHILS # (AUTO) 0.1 K/uL (0.0-0.7); EOSINOPHILS % (AUTO) 1.8 % (0.0-6.0); HEMATOCRIT 37 % (33-45); HEMOGLOBIN 12.7 g/dL (11.5-14.8); LYMPHOCYTES # (AUTO) 1.7 K/uL (0.8-4.8); LYMPHOCYTES % (AUTO) 30.1 % (20.0-44.0); MEAN CORPUSCULAR HEMOGLOBIN 30 PG (26.0-33.0); MEAN CORPUSCULAR HGB CONC 34 g/dl (31.0-36.0); MEAN CORPUSCULAR VOLUME 89 fL (82-100); MONOCYTES # (AUTO) 0.7 K/uL (0.1-1.30); MONOCYTES % (AUTO) 12.1 % (2.0-12.0); NEUTROPHILS # (AUTO) 3.1 K/uL (1.8-8.9); NEUTROPHILS % (AUTO) 55.1 % (43.0-81.0); PLATELET COUNT (AUTO) 219 K/uL (150-450); RED BLOOD CELL COUNT(AUTO) 4.16 MIL/uL (4.0-5.2); RED CELL DISTRIBUTION WIDTH 13.8 % (11.5-15.0); WHITE BLOOD COUNT (AUTO) 5.6 K/uL (4.3-11.0)
[2024-01-17 21:24] LABS: ERYTHROCYTE SEDIMENTATION RATE 13 MM/HR (0-30)
[2024-01-17] MEDS: CLOPIDOGREL BISULFATE 75 MG TABLET PO SCH (21:32)
[2024-01-17 21:48] LABS: CALCIUM, SERUM 7.6 mg/dL (8.5-10.1); CARBON DIOXIDE 28 mmol/L (21-32); CHLORIDE 100 mmol/L (98-107); CREATININE 0.9 mg/dL (0.6-1.3); GLUCOSE 100 mg/dL (74-106); SODIUM SERUM 135 mmol/L (136-145); UREA NITROGEN, BLOOD 22 mg/dL (7-18)
[2024-01-17 21:55] LABS: ALANINE AMINOTRANSFERASE 23 U/L (12-78); ALBUMIN 3.3 g/dL (3.4-5.0); ALKALINE PHOSPHATASE 120 U/L (46-116); ASPARTATE AMINOTRANSFERASE 17 U/L (15-37); BILIRUBIN,TOTAL 0.7 mg/dL (0.2-1.0); THYROID STIMULATING HORMONE 1.091 uIU/mL (0.358-3.74); TOTAL PROTEIN, SERUM 6.7 g/dL (6.4-8.2)
[2024-01-17] MEDS: BLOOD SUGAR DIAGNOSTIC 1 EACH STRIP IN SCH (22:01)
[2024-01-17] MEDS: CITALOPRAM HYDROBROMIDE 20 MG TABLET PO SCH (22:10)
[2024-01-18] VITALS (7 sets, daily range): BP systolic 106–137; BP diastolic 61–79; TEMP 97.9–98.6; O2SAT 96–97
[2024-01-18] MEDS ORDERED: BLOOD SUGAR DIAGNOSTIC 1 EACH STRIP IN SCH
[2024-01-18] MEDS ORDERED: IV NS 0.9% 1,000 ML BAG IV PRN (01:00)
[2024-01-18] MEDS ORDERED: IV NS 0.9% 500 ML BAG IV ONE (01:30)
[2024-01-18 02:31] LABS: BASOPHILS % (AUTO) 0.8 % (0.0-2.0); EOSINOPHILS # (AUTO) 0.1 K/uL (0.0-0.7); EOSINOPHILS % (AUTO) 2.2 % (0.0-6.0); HEMATOCRIT 35 % (33-45); HEMOGLOBIN 11.9 g/dL (11.5-14.8); LYMPHOCYTES # (AUTO) 1.8 K/uL (0.8-4.8); LYMPHOCYTES % (AUTO) 33.7 % (20.0-44.0); MEAN CORPUSCULAR HEMOGLOBIN 30 PG (26.0-33.0); MEAN CORPUSCULAR HGB CONC 34 g/dl (31.0-36.0); MEAN CORPUSCULAR VOLUME 90 fL (82-100); MONOCYTES # (AUTO) 0.7 K/uL (0.1-1.30); MONOCYTES % (AUTO) 13.6 % (2.0-12.0); NEUTROPHILS # (AUTO) 2.6 K/uL (1.8-8.9); NEUTROPHILS % (AUTO) 49.7 % (43.0-81.0); PLATELET COUNT (AUTO) 198 K/uL (150-450); RED BLOOD CELL COUNT(AUTO) 3.92 MIL/uL (4.0-5.2); RED CELL DISTRIBUTION WIDTH 13.8 % (11.5-15.0); WHITE BLOOD COUNT (AUTO) 5.3 K/uL (4.3-11.0)
[2024-01-18 02:39] LABS: CALCIUM, SERUM 7.4 mg/dL (8.5-10.1); CREATININE 0.9 mg/dL (0.6-1.3)
[2024-01-18 02:43] LABS: APPEARANCE,URINE CLEAR (CLEAR); BILIRUBIN,URINE NEGATIVE (NEGATIVE); BLOOD, URINE NEGATIVE Ery/uL (NEGATIVE); COLOR,URINE YELLOW (YELLOW); KETONES,URINE NEGATIVE (NEGATIVE); LEUKOCYTE ESTERASE ,URINE NEGATIVE (NEGATIVE); NITRITE, URINE NEGATIVE (NEGATIVE); PROTEIN,URINE NEGATIVE (NEGATIVE); UGLUCOSE NEGATIVE (NEGATIVE); UROBILINOGEN,URINE 0.2 EU/dL (0.2)
[2024-01-18 02:50] LABS: AMPHETAMINE, URINE NEGATIVE (NEGATIVE); BARBITURATE, URINE NEGATIVE (NEGATIVE); BENZODIAZEPINE, URINE NEGATIVE (NEGATIVE); CANNABINOID, URINE NEGATIVE (NEGATIVE); COCCAINE, URINE NEGATIVE (NEGATIVE); OPIATE, URINE NEGATIVE (NEGATIVE); PHENCYCLIDINE SCREEN,URINE NEGATIVE (NEGATIVE)
[2024-01-18] MEDS: METOPROLOL SUCCINATE 25 MG TAB.SR.24H PO SCH (09:00)
[2024-01-18] MEDS: ASPIRIN 81 MG TAB.CHEW PO SCH (09:14)
[2024-01-18] MEDS: LOSARTAN POTASSIUM 25 MG TABLET PO SCH (09:15)
[2024-01-18] MEDS: ATORVASTATIN 40 MG TABLET PO SCH (11:13)
[2024-01-18] MEDS: IV NS 0.9% 1,000 ML IV PRN (16:21)
[2024-01-18] MEDS: ACETAMINOPHEN 325 MG TABLET PO PRN (18:23)
[2024-01-18] MEDS ORDERED: ATORVASTATIN 10 MG TABLET PO SCH (22:00)
[2024-01-19 07:00] VITALS: BP 141/79; TEMP 98.1; O2SAT 95
[2024-01-19 08:00] VITALS: BP 141/79; TEMP 98.1; O2SAT 95
[2024-01-19] MEDS ORDERED: ATOR40TA PO (12:53)
[2024-01-19] MEDS ORDERED: CLOP75TA15 PO (12:53)
[2024-01-19 13:00] VITALS: BP 151/81; TEMP 98.4; O2SAT 95
== END 2024-01-19 13:45 | disposition home or self-care (01) | DRG 69 ==
LOC: ER 16:05 → TELE 18:28
PROVIDERS: ATTEND Nurse Practitioner Acute Care
DX: G45.9 Transient cerebral ischemic attack, unspecified (principal); E87.1 Hypo-osmolality and hyponatremia; R41.89 Other symptoms and signs involving cognitive functions and awareness; R29.700 NIHSS score 0; E11.9 Type 2 diabetes mellitus without complications; E78.5 Hyperlipidemia, unspecified; E83.51 Hypocalcemia; F32.A Depression, unspecified; I10 Essential (primary) hypertension; Z86.73 Personal history of transient ischemic attack (TIA), and cerebral infarction without residual deficits; Z88.2 Allergy status to sulfonamides; F41.9 Anxiety disorder, unspecified; I08.0 Rheumatic disorders of both mitral and aortic valves; M85.80 Other specified disorders of bone density and structure, unspecified site
CPT/HCPCS: 36415; 70450-TC; 70496-TC; 70498-TC; 71045-TC; 80048-TC; 80053-TC; 80061-TC; 82962-TC; 84443-TC; 84484-TC; 85025-TC; 85652-TC; 85730-TC; 93307-TC; 97110-TC; 97112-TC; 97116-TC; 97530-TC; 97535-TC; A4223; G0378; J1200; J7030; J7050; Q9967

== ENCOUNTER 2024-03-31 13:31 | Emergency (ER) | payer BC, OTHER ==
[~2024-03-31] VITALS: Ht 162.6 cm; Wt 53.5 kg
[~2024-03-31 13:31] MED LIST changes: -ALPR0.255 PO; +ASPI-1169 PO; -ASPI-605 PO; +ATOR40TA PO; -CALC-223 PO; +CITA20TA19 PO; +CLOP75TA15 PO; -HYDR-3972 PO; -HYDR-4303 PO; -IBUP-1955 PO; +IBUP-23 PO; -LACT10SO3 PO; -MAGN400T26 PO; -ONDA4TAB11 PO; -OXYC1TAB12 PO; -SENN-18 PO; -SIMV10TA98 PO
[2024-03-31 14:11] LABS: BASOPHILS % (AUTO) 0.6 % (0.0-2.0); EOSINOPHILS % (AUTO) 0.5 % (0.0-6.0); HEMATOCRIT 38 % (33-45); HEMOGLOBIN 13.1 g/dL (11.5-14.8); LYMPHOCYTES # (AUTO) 1.2 K/uL (0.8-4.8); LYMPHOCYTES % (AUTO) 22.9 % (20.0-44.0); MEAN CORPUSCULAR HEMOGLOBIN 31 PG (26.0-33.0); MEAN CORPUSCULAR HGB CONC 34 g/dl (31.0-36.0); MEAN CORPUSCULAR VOLUME 90 fL (82-100); MONOCYTES # (AUTO) 0.6 K/uL (0.1-1.30); MONOCYTES % (AUTO) 10.9 % (2.0-12.0); NEUTROPHILS # (AUTO) 3.5 K/uL (1.8-8.9); NEUTROPHILS % (AUTO) 65.1 % (43.0-81.0); PLATELET COUNT (AUTO) 201 K/uL (150-450); RED BLOOD CELL COUNT(AUTO) 4.24 MIL/uL (4.0-5.2); WHITE BLOOD COUNT (AUTO) 5.4 K/uL (4.3-11.0)
[2024-03-31 14:26] LABS: SERUM AMMONIA 19 umol/L (11-32)
[2024-03-31 14:27] LABS: CALCIUM, SERUM 8.8 mg/dL (8.5-10.1); CARBON DIOXIDE 30 mmol/L (21-32); CHLORIDE 97 mmol/L (98-107); CREATININE 0.7 mg/dL (0.6-1.3); GLUCOSE 93 mg/dL (74-106); POTASSIUM 3.9 mmol/L (3.5-5.1); SODIUM SERUM 133 mmol/L (136-145); UREA NITROGEN, BLOOD 13 mg/dL (7-18)
[2024-03-31 14:33] LABS: ALANINE AMINOTRANSFERASE 48 U/L (12-78); ALBUMIN 3.9 g/dL (3.4-5.0); ALKALINE PHOSPHATASE 83 U/L (46-116); ASPARTATE AMINOTRANSFERASE 30 U/L (15-37); BILIRUBIN,DIRECT 0.3 mg/dL (0.0-0.2); BILIRUBIN,TOTAL 1.7 mg/dL (0.2-1.0); TOTAL PROTEIN, SERUM 7.4 g/dL (6.4-8.2)
[2024-03-31 14:34] LABS: ALCOHOL, BLOOD < 3 mg/dL (0-10); SALICYLATE < 0.2 mg/dL (2.8-20.0)
[2024-03-31] MEDS: IV NS 0.9% 1,000 ML BAG IV ONE (15:10)
[2024-03-31 15:56] VITALS: BP 142/75; TEMP 98; O2SAT 98
== END 2024-03-31 15:57 | disposition home or self-care (01) ==
LOC: ER 14:18
DX: R55 Syncope and collapse (principal); E86.0 Dehydration; R41.0 Disorientation, unspecified; I10 Essential (primary) hypertension; E78.5 Hyperlipidemia, unspecified; Z86.79 Personal history of other diseases of the circulatory system; Z87.39 Personal history of other diseases of the musculoskeletal system and connective tissue; Z91.013 Allergy to seafood; Z91.040 Latex allergy status; Z88.2 Allergy status to sulfonamides
CPT/HCPCS: 99285; 96360; 93005; 71045; 82140; 85025; 80048; 80076; 36415; 84443; 84484; 82962; 80320; J7030; G0480

== ENCOUNTER 2025-04-23 10:57 | Outpatient (CLI) | payer BC, OTHER ==
[2025-04-23 11:38] LABS: PLATELET COUNT (AUTO) 226 K/uL (150-450); RED BLOOD CELL COUNT(AUTO) 4.39 MIL/uL (4.0-5.2); RED CELL DISTRIBUTION WIDTH 13.9 % (11.5-15.0); WHITE BLOOD COUNT (AUTO) 4.8 K/uL (4.3-11.0)
[2025-04-23 12:00] LABS: ASPARTATE AMINOTRANSFERASE 17.0 U/L (15-37); CALCIUM, SERUM 9.1 mg/dL (8.5-10.1); CREATININE 0.9 mg/dL (0.6-1.3); SODIUM SERUM 138.0 mmol/L (136-145); TOTAL PROTEIN, SERUM 6.8 g/dL (6.4-8.2); UREA NITROGEN, BLOOD 26.0 mg/dL (7-18)
[2025-04-23 12:02] LABS: LDL 102.0 mg/dL (0-99)
== END 2025-04-23 23:59 | disposition home or self-care (01) ==
LOC: LAB 10:57
PROVIDERS: ATTEND Internal Medicine Interventional Cardiology
DX: I10 Essential (primary) hypertension (principal); E11.9 Type 2 diabetes mellitus without complications; E78.5 Hyperlipidemia, unspecified; E03.9 Hypothyroidism, unspecified; R53.83 Other fatigue
CPT/HCPCS: 36415; 80053-TC; 80061-TC; 84439-TC; 84443-TC; 85025-TC